=== PATIENT | female | born 1960 | race African-American/Black ===

== ENCOUNTER 2021-12-17 01:10 | Day surgery (SDC) | payer OTHER, SELFPAY ==
[2021-12-04 15:28] VITALS: BMI 33.3
--- NOTE | 2021-12-16 15:08 | PM.HPGS ---
History of Present Illness History of Present Illness Consent: Risks, benefits, and alternatives have been discussed and questions answered. Patient agrees to proceed with procedure. Chief complaint: neoplasm screening Narrative: Josselyn Bowden is a 61 year old female Referred for colon cancer screening. She had a tubular adenoma removed about 8 years ago Review of Systems Review of Systems: All systems reviewed & are unremarkable except as noted in HPI and below PMFSH Social History Social History Years smoked: 40 Smoking status: Former smoker Tobacco type: cigarettes Substance use: never Substance use type: does not use Living arrangements: with family Spiritual care concerns: No Meds Home Medications and Allergies Home Medications Medication Instructions Recorded Confirmed Type amlodipine 5 mg PO DAILY 12/04/21 12/17/21 History aspirin [Adult Low Dose Aspirin] 81 mg PO DAILY 12/04/21 12/17/21 History diclofenac sodium 150 mg PO DAILY 12/04/21 12/17/21 History ergocalciferol (vitamin D2) 50,000 unit PO WEEKLY 12/04/21 12/17/21 History losartan-hydrochlorothiazide 1 tablet PO DAILY 12/04/21 12/17/21 History potassium chloride 10 meq PO DAILY 12/04/21 12/17/21 History venlafaxine 150 mg PO DAILY 12/04/21 12/17/21 History Allergies Allergy/AdvReac Type Severity Reaction Status Date / Time No Known Allergies Allergy Verified 12/17/21 06:25 Exam Resp: Auscultation: clear to auscultation bilaterally Cardio: Rate: regular rate Rhythm: regular rhythm GI: GI Palp: Yes Soft to palpation and No Tenderness to palpation present (GI) Assessment and Plan Assessment and plan (1) Colon cancer screening: Code(s): Z12.11 - Encounter for screening for malignant neoplasm of colon Status: Acute Assessment and Plan: Colonoscopy with possible biopsy or polypectomy or cautery or injection of substances.
[2021-12-17 06:28] VITALS: BP 147/90; PULSE 76; RESP 17; TEMP 37; O2SAT 100
[2021-12-17] MEDS: LACTATED RINGERS 1,000 ML 150 ML IV CONT (06:38)
--- NOTE | 2021-12-17 07:20 | WPDANESEPPF ---
Anes - Initial Pre Proc Eval Procedure: Operation Date: 12/17/21 07:30 Proposed Procedures p Screening Colonoscopy - Ed Santos MD Date/Time: 12/17/21 07:20 Surgeon: Ed Santos MD Pre Op Diagnosis: neoplasm screening Patient Data Age: 61 Gender: F Height: 1.63 m Weight: 88 kg Last Vital Signs Temp 98.6 F 12/17/21 06:28 Pulse 76 12/17/21 06:28 Resp 17 12/17/21 06:28 BP 147/90 H 12/17/21 06:28 Pulse Ox 100 12/17/21 06:28 Allergies Allergy/AdvReac Type Severity Reaction Status Date / Time No Known Allergies Allergy Verified 12/17/21 06:25 Home Medications Medication Instructions Recorded Confirmed Type amlodipine 5 mg PO DAILY 12/04/21 12/17/21 History aspirin [Adult Low Dose Aspirin] 81 mg PO DAILY 12/04/21 12/17/21 History diclofenac sodium 150 mg PO DAILY 12/04/21 12/17/21 History ergocalciferol (vitamin D2) 50,000 unit PO WEEKLY 12/04/21 12/17/21 History losartan-hydrochlorothiazide 1 tablet PO DAILY 12/04/21 12/17/21 History potassium chloride 10 meq PO DAILY 12/04/21 12/17/21 History venlafaxine 150 mg PO DAILY 12/04/21 12/17/21 History Patient hx anesthesia problems: none Family hx anesthesia problems: none Results Review: All pre-operative results and documents have been reviewed as part of the pre-operative evaluation. PMFSH Social History Social History Years smoked: 40 Smoking status: Former smoker Tobacco type: cigarettes Substance use: never Substance use type: does not use Living arrangements: with family Spiritual care concerns: No Anes - Eval Final PreProcedure Day of Procedure 12/17/21 07:20 Patient weight: obese Heart: regular rate and rhythm Lungs: clear to auscultation Airway: Mallampati scale class II Neurological: alert and oriented Last oral intake: >/= 8 hours ASA classification: II Emergent: no Anesthetic plan: proceed Anesthesia type and monitoring: general GIVS and standard monitoring Results Review: All pre-operative results and documents have been reviewed as part of the pre-operative evaluation. Informed Consent: The patient's anesthetic plan and its attendant risks and benefits were discussed with the patient/family/POA. Questions were solicited and answers provided to the satisfaction of the patient/family/POA.
[2021-12-17 07:49] VITALS: BP 97/65; PULSE 74; RESP 17; O2SAT 99
[2021-12-17 07:59] VITALS: BP 99/65; PULSE 76; RESP 18; O2SAT 100
[2021-12-17 08:09] VITALS: BP 119/85; PULSE 72; RESP 22; O2SAT 100
== END 2021-12-17 08:15 | disposition home or self-care (01) ==
PROVIDERS: PCP Family Medicine; Visit Provider Internal Medicine Gastroenterology
PROC: 0DJD8ZZ Inspection of Lower Intestinal Tract, Via Natural or Artificial Opening Endoscopic (ICD-10-PCS; CPT 45378; principal; 2021-12-17 07:30)
DX: Z12.11 Encounter for screening for malignant neoplasm of colon (principal); K57.30 Diverticulosis of large intestine without perforation or abscess without bleeding; K63.5 Polyp of colon; Z79.82 Long term (current) use of aspirin; Z87.891 Personal history of nicotine dependence; E66.9 Obesity, unspecified; Z68.33 Body mass index [BMI] 33.0-33.9, adult
CPT/HCPCS: 45380; 88305; J2704; J7120